=== PATIENT | male | born 1985 | race African-American/Black ===

== ENCOUNTER 2017-02-03 23:51 | Emergency (ER) | payer OTHER ==
[~2017-02-03] VITALS: Ht 177.8 cm; Wt 74.5 kg
[2017-02-03 23:56] VITALS: Ht 177.8 cm; Wt 74.5 kg
[2017-02-04] MEDS ORDERED: DIPHTH/TET/ACEL PERTUSS (ADULT) 0.5 ML VIAL IM* ONE (01:30)
--- NOTE | 2017-02-04 01:39 | RADRPT ---
PROCEDURE: XR Hand. CLINICAL INDICATION: Trauma. Cut hand with glass.. TECHNIQUE: Three views of the right hand were obtained. COMPARISON: No prior studies are available for comparison. FINDINGS: No fracture is identified. Joint relationships are maintained. Bone mineralization is within donavan l limits. Soft tissues are unremarkable. IMPRESSION: No acute fracture. No radiopaque foreign body. RPTAT: HMVK .Reymundo Gonzales MD, Date Time Electronically viewed and signed by .Reymundo Gonzales MD, on 02/04/2017 01:38 .K/
[2017-02-04] MEDS ORDERED: LIDOCAINE 1% (MDV) 20 ML INJ SC ONE (02:00)
[2017-02-04] MEDS ORDERED: IBUP-1542 PO (02:16)
--- NOTE | 2017-02-04 02:23 | ERD ---
ER Documentation Chief Complaint Date/Time DATE: 02/04/17 TIME: 02:18 Chief Complaint laceration right hand HPI 31-year-old right-handed male with no significant past medical history presents the ED complaining of a laceration noted on the right hand. Patient states that he was washing the dishes and a broken glass cup cut the medial aspect of his right hand. States that he is up-to-date with his tetanus shot. Rates the pain a 4 out of 10. States that the pain is a sharp pain. Reports he has been taking Tylenol. Denies any abdominal pain, nausea, vomiting, loss of sensation , loss of range of motion, fever, chills. ROS All systems reviewed and are negative except as per history of present illness. Medications Home Meds Active Scripts Ibuprofen* (Motrin*) 600 Mg Tab, 600 MG PO Q6, #30 TAB Prov:GABBI MEDINA PA-C 02/04/17 Allergies Allergies: Coded Allergies: No Known Allergy (Unverified , 02/03/17) PMhx/Soc History of Surgery: No Anesthesia Reaction: No Hx Neurological Disorder: No Hx Respiratory Disorders: No Hx Cardiac Disorders: No Hx Psychiatric Problems: No Hx Miscellaneous Medical Probl: No (DENIES MEDICAL AND SURGICAL HX) Hx Alcohol Use: No Hx Substance Use: No Hx Tobacco Use: No Smoking Status: Never smoker Physical Exam Vitals Vital Signs Date Time Temp Pulse Resp B/P Pulse Ox O2 Delivery O2 Flow Rate FiO2 02/03/17 23:56 97.4 65 20 127/73 100 Physical Exam Const: Srh-ske-edfpeyzch, well-nourished. In no acute distress. Head: Atraumatic, normocephalic Eyes: Normal Conjunctiva without injection ENT: Normal external ear, nose and mouth. Neck: Full range of motion. No meningismus. Resp: Clear to auscultation bilaterally. No wheezing, rhonchi, rales, or crackles. No accessory muscle use. No retractions. Cardio: Regular rate and rhythm, no murmurs Skin: No petechiae or rashes. 2 cm laceration noted on the medial aspect of patient's right hand. Minimal bleeding noted. No surrounding erythema, fluctuance, induration, edema noted. No foreign bodies noted. No visualization of tendon. Back: No midline tenderness. No CVA tenderness. Ext: No cyanosis, or edema. Cap refill less than 2 seconds. Distal pulses intact bilaterally. Neur: Awake and alert. Normal gait and coordination. Muscle strength 5/5. Sensation intact bilaterally. Psych: Normal Mood and Affect Results 24 hrs Current Medications Medications (Trade) Dose Ordered Sig/Jakub Route PRN Reason Start Time Stop Time Status Last Admin Dose Admin Diphtheria/ Tetanus/Acell Pertussis (Adacel) 0.5 ml ONCE ONCE IM* 02/04/17 01:30 02/04/17 01:31 DC Lidocaine (Xylocaine 1% (Mdv) 20 ml) 20 ml ONCE ONCE SC 02/04/17 02:00 02/04/17 02:01 DC Procedures/MDM This is a 31-year-old male with no significant past medical history presents the ED complaining of a right hand laceration. Patient is afebrile nontoxic appearing. Patient has normal vital signs. A right hand x-ray was ordered to further evaluate patient and rule out any foreign bodies. Tetanus vaccine was administered patient here in the ED. Patient denied wanting any pain medications. PROCEDURE: XR Hand. CLINICAL INDICATION: Trauma. Cut hand with glass.. TECHNIQUE: Three views of the right hand were obtained. COMPARISON: No prior studies are available for comparison. FINDINGS: No fracture is identified. Joint relationships are maintained. Bone mineralization is within normal limits. Soft tissues are unremarkable. IMPRESSION: No acute fracture. No radiopaque foreign body. Patient gave consent to perform laceration repair. Laceration Repair by me: Anesthesia: 5 cc 1% lidocaine locally Location: Medial aspect of right hand Tendon/Joint/Nerves: No injury Foreign body: None detected after copious irrigation and exploration Technique: 3 5-0 Prolene Simple Interrupted Sutures Complexity: No subcutaneous sutures/mucosal repair/ edge excision Post Closure Length: [2] cm Patient's bleeding was easily controlled in the department and there is no indication of anemia. Patient is neurovascularly intact. No evidence of compartment syndrome, neurologic injury, vascular injury, open joint, tendon laceration, or foreign body. Patient is appropriate for outpatient follow up. 48 hour wound check. Scar minimization instructions given. Instructed patient to return for suture removal in 7-10 days. Patient's extremity symptoms have stabilized while they have been evaluated in the department and are appropriate for outpatient follow up. No evidence of fractures, dislocations, compartment syndrome, neurologic injury, vascular injury, open joint, open fracture, tendon laceration, septic arthritis, osteomyelitis, DVT, foreign body, or other emergent conditions. Discharge medications: Tylenol Follow up with primary care physician in 1-2 days. Instructed patient to return to the ED sooner for any worsening symptoms. Patient's questions were answered. Patient understood and agreed with discharge plan. Patient discharged stable. Departure Diagnosis: Primary Impression: Laceration of hand Encounter type: initial encounter Laterality: right Qualified Code: S61.411A - Laceration of hand, right, initial encounter Condition: Stable Patient Instructions: Laceration, Hand Referrals: COMM[facility]ITY CLINICS YOU HAVE RECEIVED A MEDICAL SCREENING EXAM AND THE RESULTS INDICATE THAT YOU DO NOT HAVE A CONDITION THAT REQUIRES URGENT TREATMENT IN THE EMERGENCY DEPARTMENT. FURTHER EVALUATION AND TREATMENT OF YOUR CONDITION CAN WAIT UNTIL YOU ARE SEEN IN YOUR DOCTORS OFFICE WITHIN THE NEXT 1-2 DAYS. IT IS YOUR RESPONSIBILITY TO MAKE AN APPOINTMENT FOR FOLOW-UP CARE. IF YOU HAVE A PRIMARY DOCTOR --you should call your primary doctor and schedule an appointment IF YOU DO NOT HAVE A PRIMARY DOCTOR YOU CAN CALL OUR PHYSICIAN REFERRAL HOTLINE AT IF YOU CAN NOT AFFORD TO SEE A PHYSICIAN YOU CAN CHOSE FROM THE FOLLOWING [facility] [address] [facility]. [facility] [address] [facility]. [facility] [address] [facility]. [facility] [address] [facility]. [facility] [address] [facility]. [facility]. [address] [facility]. [facility] YOU HAVE RECEIVED A MEDICAL SCREENING EXAM AND THE RESULTS INDICATE THAT YOU DO NOT HAVE A CONDITION THAT REQUIRES URGENT TREATMENT IN THE EMERGENCY DEPARTMENT. FURTHER EVALUATION AND TREATMENT OF YOUR CONDITION CAN WAIT UNTIL YOU ARE SEEN IN YOUR DOCTORS OFFICE WITHIN THE NEXT 1-2 DAYS. IT IS YOUR RESPONSIBILITY TO MAKE AN APPOINTMENT FOR FOLOW-UP CARE. IF YOU HAVE A PRIMARY DOCTOR --you should call your primary doctor and schedule and appointment IF YOU DO NOT HAVE A PRIMARY DOCTOR YOU CAN CALL OUR PHYSICIAN REFERRAL HOTLINE AT . IF YOU CAN NOT AFFORD TO SEE A PHYSICIAN YOU CAN CHOSE FROM THE FOLLOWING [facility] INSTITUTIONS: [facility] [address] [place] [address] [facility] [address] [place] [address] [facility] [address] [place] [address] [facility] Additional Instructions: Follow up in 2 days in your clinic for wound check. Follow up with your physician to remove the stitches:For Face wounds 5-7 days.For Elsewhere on the body 7-10 days. Return to this facility if you are not improving as expected. GABBI MEDINA PA-C Feb 04, 2017 02:23
[2017-02-04] MEDS ORDERED: ACET500C5 PO (02:24)
== END 2017-02-04 02:46 | disposition home or self-care (01) ==
LOC: FTE 23:51
DX: S61.411A Laceration without foreign body of right hand, initial encounter (principal); W25.XXXA Contact with sharp glass, initial encounter; Y92.9 Unspecified place or not applicable
CPT/HCPCS: 12001; 73130; 90471; Z7502; Z7610

== ENCOUNTER 2018-11-28 12:35 | Day surgery (SDC) | payer OTHER ==
[~2018-11-28] VITALS: Ht 172.7 cm; Wt 74.2 kg
[~2018-11-28 12:35] MED LIST: ACET500C5 PO
[2018-11-28 13:59] VITALS: BP 126/78; PULSE 64; RESP 20; Ht 172.7 cm; Wt 74.2 kg
--- NOTE | 2018-11-28 15:25 | PREAC ---
Date/Time of Note Date/Time of Note DATE: 11/28/18 TIME: 15:24 Anesthesia Eval and Record Evaluation Time Pre-Procedure Interview DATE: 11/28/18 TIME: 15:24 Age 33 Sex male NPO: 8 hrs Preoperative diagnosis abdominal pain Planned procedure EGD Past Medical History Past Medical History: None Surgery & Anesthesia Issues No known issue Meds Anticoagulation: No Beta Carolynn within 24 hr: No Reason Beta Carolynn not given: Pt. not on B-Carolynn Reported Medications [none] No Conflict Check 11/28/18 Discontinued Scripts Acetaminophen* (Tylophen*) 500 Mg Capsule, 1 CAP PO Q6H PRN for PAIN AND OR ELEVATED TEMP, #20 CAP Prov:GABBI MEDINA PA-C 02/04/17 Meds reviewed: Yes Allergies Coded Allergies: No Known Allergy (Unverified , 02/03/17) Allergies Reviewed: Yes Labs/Studies Labs Reviewed: Reviewed by anesthesiologist test: N/A Pre-procedure Exam Last vitals Vital Signs Date Temp Pulse Resp B/P (MAP) Pulse Ox O2 O2 Flow FiO2 Time Delivery Rate 11/28/18 97.8 64 20 126/78 100 Room Air 13:59 (94) Airway: Adequate mouth opening, Adequate thyromental dist Mallampati: Mallampati II Teeth: Normal Lung: Normal Heart: Normal ASA Physical Status ASA physical status: 1 Emergency: None Planned Pain Management Parenteral pain med Pre-operative Attestations Prior to commencing anesthesia and surgery, the patient was re-evaluated, there was verification of: *The patient's identity *The results of appropriate recent lab work and preoperative vital signs *The above evaluation not changing prior to induction *Anesthetic plan, risk benefits, alternative and complications discussed with patient/family; questions answered; patient/family understands, accepts and wishes to proceed. SHAWN MERRITT MD Nov 28, 2018 15:25
[2018-11-28] MEDS ORDERED: PROPOFOL 40 ML ONE (15:26)
[2018-11-28] MEDS ORDERED: LIDOCAINE 2% (SDV) 5 ML INJ ONE (15:26)
[2018-11-28 15:45] VITALS: BP 123/63; PULSE 82; RESP 19
--- NOTE | 2018-11-28 15:46 | PAC ---
Date/Time of Note Date/Time of Note DATE: 11/28/18 TIME: 15:46 Post-Anesthesia Notes Post-Anesthesia Note Last documented vital signs Vital Signs Date Temp Pulse Resp B/P (MAP) Pulse Ox O2 O2 Flow FiO2 Time Delivery Rate 11/28/18 97.8 64 20 126/78 100 Room Air 13:59 (94) Activity: WNL Respiratory function: WNL Cardiovascular function: WNL Mental status: Baseline Pain reasonably controlled: Yes Hydration appropriate: Yes Nausea/Vomiting absent: Yes Comments BP:127/67, pulse:78, spo2:100%, T:98,8 SHAWN MERRITT MD Nov 28, 2018 15:46
[2018-11-28 15:55] VITALS: BP 127/63; PULSE 82; RESP 18
[2018-11-28 16:08] VITALS: BP 130/63; PULSE 84; RESP 20
== END 2018-11-28 16:27 | disposition home or self-care (01) ==
LOC: GIL 12:35
PROVIDERS: ATTEND Internal Medicine Gastroenterology
DX: K29.50 Unspecified chronic gastritis without bleeding (principal); K21.0 Gastro-esophageal reflux disease with esophagitis
CPT/HCPCS: 43239; 88305; Z7610